=== PATIENT | female | born 1955 ===

== ENCOUNTER 2019-08-07 06:20 | Day surgery (SDC) | payer OTHER ==
[~2019-08-07 06:20] MED LIST: GLUMETZA500 MG PO; PROVASTATIN PO
[2019-08-07] MEDS ORDERED: FLAGYL500MG PO (13:39)
== END 2019-08-07 16:15 | disposition home or self-care (01) ==
LOC: CIR.AMB 06:20
DX: D26.1 Other benign neoplasm of corpus uteri (principal); N72 Inflammatory disease of cervix uteri

== ENCOUNTER 2020-04-02 10:47 | Outpatient (CLI) | payer OTHER ==
[~2020-04-02 10:47] MED LIST changes: +FLAGYL500MG PO
== END 2020-04-02 10:56 | disposition home or self-care (01) ==
LOC: SONOGRAMA 10:47
PROVIDERS: ATTEND Surgery
DX: N60.12 Diffuse cystic mastopathy of left breast (principal); R92.0 Mammographic microcalcification found on diagnostic imaging of breast